=== PATIENT | male | born 1960 | race African-American/Black ===

== ENCOUNTER 2018-08-30 05:29 | Inpatient (IN) ==
[2018-08-30] MEDS ORDERED: COMPAZINE IV ONE (06:05)
[2018-08-30 06:56] LABS: BASO# 0.01 X1000 (0.0-0.2); BASO% 0.1 % (0.0-0.8); HEMATOCRIT 38.6 % (42.0-52.0); HEMOGLOBIN 13.1 g/dL (14.0-18.0); IMM GRAN# 0.03 X1000 (0.0-0.04); IMM GRAN% 0.3 % (0.0-0.5); LYMPH# 1.08 X1000 (1.2-3.4); LYMPH% 9.6 % (20.5-51.1); MCH 28.3 PG (27-31); MCHC 33.9 g/dL (33-37); MCV 83.4 FL (81-99); MONO# 0.45 X1000 (0.11-0.59); NEUT# 9.68 X1000 (1.4-6.5); PLT 177 X1000 (130-400); RBC 4.63 XMIL (4.7-6.1); RDW 14.2 % (11.5-14.5); WBC 11.25 X1000 (4.8-10.8)
[2018-08-30 07:07] LABS: ALBUMIN 4.2 g/dL (3.5-5.0); CALCIUM 7.6 mg/dL (8.8-10.2); CREATININE 1.9 mg/dL (0.7-1.2); POTASSIUM 3.1 mmol/L (3.5-5.1); TOTAL BILIRUBIN 1.6 mg/dL (0.20-1.00); TOTAL PROTEIN 7.9 g/dL (6.3-8.3)
--- NOTE | 2018-08-30 07:08 | PROVIDER DOCUMENTATION ---
HPI-Abdominal Pain/GI Problem - General Chief Complaint: Abdominal Pain Stated Complaint: ABD PAIN/VOMITING Time Seen by Provider: 08/30/18 05:52 Source: patient Allergies/Adverse Reactions: Patient Allergies Allergy/AdvReac Type Severity Reaction Status Date / Time promethazine HCl * Allergy Unknown agitation Verified 08/30/18 05:44 [From Phenergan] Home Medications: Home Medication List Medication Instructions Recorded Confirmed Last Taken Type ATORVAstatin [Lipitor] 80 mg PO DAILY 06/02/18 06/02/18 Unknown History Amlodipine [Norvasc] 5 mg PO DAILY 06/02/18 06/02/18 Unknown History Carvedilol 25 mg PO BID 06/02/18 06/02/18 Unknown History Chlorthalidone 50 mg PO DAILY 06/02/18 06/02/18 Unknown History Hyoscyamine Sulfate 0.125 mg PO Q6H PRN PRN #30 tab 06/02/18 Unknown Rx Losartan Potassium [Cozaar] 100 mg PO DAILY 06/02/18 06/02/18 Unknown History Omeprazole 40 mg PO DAILY 06/02/18 06/02/18 Unknown History Potassium Chloride E.r. [Klor-Con] 20 meq PO BID 06/02/18 06/02/18 Unknown History Ondansetron HCl [Zofran] 4 mg PO Q4H PRN PRN #20 tab 08/29/18 Unknown Rx - History of Present Illness-ABD Nature of Presenting Problems: has been vomiting occ diarrhea no bleeding had 1 month ago hernia repair and gb says using 70/30 40 bid Abdominal Pain Onset Location: reports: generalized abdomen Pain Radiation: reports: no radiation Quality of Pain: reports: aching, pressure Severity in ED: reports: mild Onset/Duration: reports: this evening Timing: reports: still present Activities at Onset: reports: none Exposure to sick contacts?: No Associated Symptoms: reports: diarrhea, fever/chills, malaise, nausea, vomiting , weakness Last BM: 24 hours ago Dark Stools Present?: reports: none noticed Rectal Bleeding: reports: none Rectal Pain: reports: none Bruising or Bleeding Gums?: No Similar Symptoms Previously?: No Recently seen or treated by another doctor?: No Review of Systems - Adult - REVIEW OF SYSTEMS - ADULT Constitutional: reports: no symptoms reported Eyes: reports: no symptoms reported Ears, Nose, Mouth & Throat: reports: no symptoms reported Cardiovascular: reports: no symptoms reported Respiratory: reports: cough, dyspnea on exertion Gastrointestinal: reports: see HPI Musculoskeletal: reports: no symptoms reported Integumentary: reports: no symptoms reported Neurological: reports: no symptoms reported Psychiatric: reports: no symptoms reported Endocrine: reports: increased thirst, polyuria Hematologic/Lymphatic: reports: no symptoms reported Past History - Adult - PAST MEDICAL HISTORY-ADULT Review of Records: reports: Nursing Assessment Review, Medications Reviewed, Social history reviewed & non-contributory. Major Childhood Illnesses: reports: denies history Cardiovascular: reports: HTN Respiratory: reports: denies history Gastrointestinal: reports: denies history Obstetrical/Gynecological: reports: denies history Genitourinary: reports: denies history Musculoskeletal: reports: denies history Neurological: reports: denies history Psychiatric: reports: denies history Endocrine/Immune: reports: denies history Other Conditions: reports: denies history - PRIOR SURGERIES/PROCEDURES Surgical/Procedure History: reports: recent surgery, cholecystectomy, hernia repair, joint replacement - IMMUNIZATION STATUS Childhood Immunizations: See Nurse Assessment Flu Vaccine: See Nurse Assessment - FAMILY HISTORY Family History: HTN Physical Exam-General - PHYSICAL EXAM-ADULT Initial Vital Signs Reviewed: Yes - CONSTITUTIONAL General Appearance: mild distress - EYES Eyes: PERRL/EOMI, pink conjunctivae - HEAD, EARS, NOSE, MOUTH & THROAT HENMT: normocephalic/atraumatic, moist mucous membranes, normal ENT inspection - NECK Neck: non-tender, full range of motion, supple - RESPIRATORY Respiratory: chest non-tender, lungs clear, normal breath sounds - CARDIOVASCULAR Cardiovascular: normal peripheral pulses, regular rate, rhythm - GASTROINTESTINAL (ABDOMEN) Abdominal Exam: soft - LYMPHATIC Lymphatic: no adenopathy - MUSCULOSKELETAL Back Exam: normal inspection, no CVA tenderness Extremity: normal range of motion, non-tender, normal gait - SKIN Integumentary: normal color, normal turgor - NEUROLOGIC Neurologic: grossly normal - PSYCHIATRIC Psych/Mental Status: normal mood/affect Progress - PLAN OF CARE/RESULTS Progress/Plan/Lab Results: Vital Signs - 8 hr 08/30/18 05:41 Temperature 97.8 F Pulse Rate 80 Respiratory Rate 20 Blood Pressure 158/98 O2 Sat by Pulse Oximetry 96 Laboratory Results - last 24 hr 08/30/18 06:35 WBC 11.25 H RBC 4.63 L Hgb 13.1 L Hct 38.6 L MCV 83.4 MCH 28.3 MCHC 33.9 RDW Std Deviation 14.2 Plt Count 177 MPV 13.0 H Immature Gran % (Auto) 0.3 Neut % (Auto) 86.0 H Lymph % (Auto) 9.6 L Lucas % (Auto) 4.0 Eos % (Auto) 0.0 Baso % (Auto) 0.1 Immature Gran # (Auto) 0.03 Neut # (Auto) 9.68 H Lymph # (Auto) 1.08 L Lucas # (Auto) 0.45 Eos # (Auto) 0.00 Baso # (Auto) 0.01 Orders Category Date Time Status AMYLASE [CHEM] Stat Lab 08/30/18 06:35 Received CBC WITH ELECTRONIC DIFF [HEME] Stat Lab 08/30/18 06:35 Completed COMPREHENSIVE METABOLIC PANEL [CHEM] Stat Lab 08/30/18 06:35 Received LIPASE [CHEM] Stat Lab 08/30/18 06:48 Ordered Prochlorperazine [Compazine] Med 08/30/18 06:05 Discontinued 10 mg IV NOW ONE examined pt, having pain, wrote for dilaudid, pain is periumbilical, active bowel sounds central abdomen, mild tenderness to palpation, still nauseated but not as bad after IV meds, all started on Monday with v/d/AP, would wake up groaning with pain, no fever, no diarrhea since yesterday, vomiting has decreased since but still has it, pain is the issue. Spoke with Neelam who is on for the group, he knows Edna would like to talk to me and will help locate him. Spoke w Dr Bishop, rec admit to hospitalist ff does not feel better. Spoke w Edna, reviewed results today and yesterday, HPI and current condition, giving pain med, will see if he improves with pain med, may admit for obs to hospitalist and if so he recs HIDA as a possible study to r/o stone within duct system post bob [id number] Pt still not feeling better after meds Spoke with Dr Pérez HPI PSH condition, results today and yesterday, Dr Bishop involved, agreed to admit Result Diagrams: 08/30/18 06:35 08/30/18 06:35 Departure - Departure Date of Disposition Decision: 08/30/18 Time of Disposition Decision: 09:51 DIAGNOSIS: Abdominal pain, Vomiting Disposition: ADMITTED INPATIENT 09 Certified Medical Emergency: Emergent Condition: Good Referrals and Follow-Ups: Lucia Bourgeois MD [Primary Care Provider] - - Critical Care Note This patient required my direct & personal management of CC.: No Attestation - Physician/ NATALIE Attestation The physician spent face to face time with patient:: Yes Advanced Practice Provider documentation review:: Supervising physician onsite and consulted in the evaluation and care of this patient. The physician did have a face to face encounter with the patient.
[2018-08-30] MEDS ORDERED: NS 1,000 ML IV ONE (08:02)
[2018-08-30] MEDS ORDERED: DILAUDID IV ONE (08:02)
[2018-08-30] MEDS ORDERED: ZOFRAN IV PRN (11:14)
[2018-08-30] MEDS ORDERED: TYLENOL PO PRN (11:14)
[2018-08-30] MEDS ORDERED: NS 1,000 ML IV SCH (11:30)
--- NOTE | 2018-08-30 11:42 | HISTORY AND PHYSICAL ---
PRIMARY CARE PHYSICIAN: Lucia Bourgeois MD GENERAL SURGERY: Saul Bishop MD CHIEF COMPLAINT/HISTORY OF PRESENT ILLNESS: Periumbilical abdominal pain and right upper quadrant abdominal pain, nausea and vomiting that began Monday and progressively has worsened. He had a hernia repair and a cholecystectomy on 07/13/2018. He did well after the procedure, went home, was doing well, and now when he drinks liquids he is able to hold those down, but if he tries to eat any food, he begins having nausea, abdominal pain, and has had some occasional diarrhea. He was seen in the emergency room yesterday and had an abdomen and pelvic CT done that just showed postsurgical changes, a questionable left lower lobe pneumonia, but no evidence of acute intraabdominal or pelvic disease. It was noted that his white blood cell count yesterday was 6.7; today it is 11.25. His creatinine was 1.7 yesterday; today it is 1.9. Total bilirubin yesterday in the emergency room was 1.38; today it is 1.6. His abdomen exam is soft. He has some tenderness to palpation in the right upper quadrant, but no guarding noted. Bowel sounds were present. So, he is being admitted for further evaluation and treatment. PAST MEDICAL HISTORY: Hypertension. PAST SURGICAL HISTORY: Cholecystectomy and hernia repair 1 month ago on 07/13/2018. FAMILY HISTORY: Hypertension. SOCIAL HISTORY: He currently lives with his . Denies any tobacco, alcohol, or illicit drug use. ALLERGIES: To promethazine. HOME MEDICATIONS: His home medications will all be held at this time, as he is n.p.o., but we do need to obtain a current list, and then they will be restarted after reviewed as appropriate. I will place an order for nursing to update and confirm home medications. LABORATORY DATA: Showed a white blood cell count of 11.25, hemoglobin 13.1, hematocrit 38.6, platelets 177,000. Sodium 143, potassium 3.1, chloride 97, CO2 of 26, BUN of 24, creatinine 1.9, glucose 169, total bilirubin of 1.6. AST and ALT are normal at 29 and 16. Amylase is normal at 92, lipase 18. REVIEW OF SYSTEMS: He denied any fever, chills, blurred vision, dizziness, chest pain, coughing, shortness of breath. He was positive for right upper quadrant and periumbilical abdominal pain, nausea, some occasional diarrhea. No burning or hurting with urination. PHYSICAL EXAMINATION: VITAL SIGNS: On arrival, he had a temperature of 97.8 degrees, pulse 80, respirations 20, blood pressure 158/98, saturating 96% on room air. GENERAL: This is a 58-year-old male who is sitting up in the bed, answers questions appropriately. HEENT: Normocephalic, atraumatic. Normal ENT inspection. Oropharynx and nares are clear. Eyes: Pupils are equal, round, reactive to light and accommodation. Extraocular movements are intact. NECK: Normal inspection. Normal range of motion. LUNGS: Clear to auscultation bilaterally with equal lung expansion and chest wall movement. ABDOMEN: Soft. There is some tenderness to palpation to the periumbilical and right upper quadrant, but no guarding noted. Bowel sounds are present x4 quadrants. MUSCULOSKELETAL: He has 5/5 strength x4 extremities. NEUROLOGICAL: The cranial nerves 2 through 12 appear grossly intact. ASSESSMENT: 1. Right upper quadrant abdominal pain. 2. Nausea. 3. A questionable left lower lobe pneumonia. 4. Hypokalemia. 5. An acute on chronic kidney disease. PLAN: He is being admitted to the medical unit at [facility], placed on telemetry. We will update and confirm home medications, but he is n.p.o. at this time. We will consult surgery. We are going to obtain a HIDA scan with an ejection fraction. Place him on Zosyn 3.375 grams IV every [address] him on normal saline at 125 mL an hour. We will give him Zofran 4 mg IV every 4 hours p.r.n. Depending on the results of his HIDA scan, we will review and see if he will need any further intervention for any stone, for an ERCP after reviewing the HIDA scan. Further orders after seen by attending. Dictated by KERRIE Fuentes for Ja Rausch MD cc: KERRIE Fuentes MD Bernice Swain, MD Matthew L. Figh, MD
[2018-08-30] MEDS: ZOSYN 3.375 GM in NS 50 ML IV SCH ×3 (12:45→23:10)
[2018-08-30] MEDS: NS + KCL 40 MEQ 1,000 ML IV SCH (14:51)
--- NOTE | 2018-08-30 16:56 | Diag Imaging Result Doc PS360 ---
CT HEAD W/O CONTRAST - 08/30/2018 INDICATION: seizure COMPARISON: None FINDINGS: The ventricles and sulci are normal in size and contour. No intracranial mass or hemorrhage. The skull is intact. There is a mucosal retention cyst in the left maxillary sinus. There is also moderate fluid in the right mastoids suggesting mastoiditis. IMPRESSION: Possible right mastoiditis. No acute intracranial abnormality. This exam was performed using automated exposure control, adjustment of mA or kV according to patient size, and/or use of iterative reconstruction technique Electronically signed by Óscar Benitez 08/30/2018 4:54 PM
[2018-08-30] MEDS ORDERED: CALCIUM GLUCONATE 1 GM in NS 50 ML IV ONE (18:30)
[2018-08-30] MEDS: LIPITOR PO SCH (23:11)
[2018-08-31 00:35] LABS: BILIRUBIN URINE NEGATIVE (NEGATIVE); BLOOD URINE 4+ (NEGATIVE); CLARITY CLEAR (CLEAR); COLOR YELLOW; GLUCOSE URINE NEGATIVE (NEGATIVE); KETONE URINE NEGATIVE (NEGATIVE); LEUKOCYTES URINE NEGATIVE (NEGATIVE); NITRITE URINE NEGATIVE (NEGATIVE); PROTEIN URINE 2+(100 mg/dL) mg/dL (NEGATIVE); UROBILINOGEN URINE NORMAL
[2018-08-31 00:37] LABS: UR AMPHETAMINES QUAL NONE DETECTED (NONE DETECT); UR BARBITUATES QUAL NONE DETECTED (NONE DETECT); UR BENZODIAZEPIN QUAL NONE DETECTED (NONE DETECT); UR CANNABINOIDS QUAL NONE DETECTED (NONE DETECT); UR COCAINE QUAL NONE DETECTED (NONE DETECT); UR METHADONE QUAL NONE DETECTED (NONE DETECT); UR METHAMPHETAMINE QUAL NONE DETECTED (NONE DETECT); UR OPIATES QUAL PRESUMPTIVE POSITIVE (NONE DETECT); UR OXYCODONE QUAL NONE DETECTED (NONE DETECT); UR PCP QUAL NONE DETECTED (NONE DETECT); UR PROPOXYPHENE QUAL NONE DETECTED (NONE DETECT); UR TCA QUAL NONE DETECTED (NONE DETECT)
[2018-08-31 00:38] LABS: URINE SOURCE CLEAN CATCH
[2018-08-31 00:39] LABS: URINE BACTERIA 2+ /HFP; URINE EPITHELIAL CELLS <10 /HPF (<10); URINE WBC <10 /HPF (<10)
[2018-08-31] MEDS ORDERED: CALCIUM GLUCONATE 1 GM in NS 50 ML IV ONE (01:00)
--- NOTE | 2018-08-31 02:00 | HISTORY AND PHYSICAL ---
ADDENDUM: The patient was seen and examined by me face to face. All the laboratory, vital signs, and images were reviewed. The patient presented to the emergency department yesterday, and was discharged home again because images showed just postsurgical changes, but questionable left lower lobe pneumonia, with no evidence of acute intra-abdominal or pelvic disease. His white blood cells yesterday was 6.7, and today it is 11.2. Creatinine was 1.7, and today is 1.9. Bilirubin increased a little bit also. He has been complaining of periumbilical pain and right upper quadrant pain, but also he started having some nausea and vomiting that started on Monday, and apparently has been getting worse. He is hypokalemic also, and has some hypocalcemia as well. Calcium level is 7.6, and albumin is 4.2. Actually, his albumin yesterday was 4.6, and his calcium level was 7.9, so I will not only replace his potassium, but I will also replace his calcium. This patient was transferred to the floor, and then he was having some kind of shakiness, probably seizure. He was unresponsive, and it was really hard to wake him up. He was confused for a little bit, and then he recovered his memory completely, but he has been having some fine tremors everywhere. I have placed an order for an EEG, and I will wait for Neurology's recommendations to see if this patient needs to have some kind of special images. His head CT without contrast showed a possible right mastoiditis, but no acute intracranial abnormality. He will be evaluated by Neurology Department. Also, this patient has been evaluated by the Surgical Department, who has recommended to do a HIDA scan. This will be done in the morning, and will follow. In the meantime, I have placed this patient on a liquid diet. I agree with the rest of the assessment and plan of the nurse practitioner. cc: Ja Rausch MD
[2018-08-31] MEDS: NS + KCL 40 MEQ 1,000 ML IV SCH ×2 (04:18→12:54)
[2018-08-31] MEDS: ZOSYN 3.375 GM in NS 50 ML IV SCH ×2 (05:22→12:54)
--- NOTE | 2018-08-31 05:47 | GENERAL SURGERY PROGRESS NOTE ---
DATE: 08/30/2018 The patient is well-known to me. I did a hernia repair on him, and a cholecystectomy, almost 2 months ago. He came to my office earlier this week with abdominal pain. We had him scheduled for an elective outpatient CT scan, but he came to the emergency department instead. CT scan was done in the emergency department. It did not show any acute pathology, but he has had persistent abdominal pain and inability to tolerate p.o. He came back into the emergency department, was admitted, and apparently had some questionable seizure-like activity. They got a CT scan of his head, which is negative. At this time, I do not see any obvious acute surgical issue, but agree with admitting him and watching him. I have discussed this case with Dr. Pérez with the hospitalist service. He is admitting him. They are getting a further workup on his possible seizure. We will also get a HIDA scan for evaluation of any kind of biliary issue. I will continue to follow with you. cc: MD Ja Bolton MD
--- NOTE | 2018-08-31 06:07 | CONSULTATION ---
DATE OF CONSULTATION: 08/30/2018 REASON FOR CONSULTATION: Mr. Brice is 58 years old and he had some behavior earlier raising question of seizure. History from the patient is that he is miserable with stomachache, nausea, and diarrhea, and that he has had some periods of times with difficulty paying attention. He does not remember thinking he was about to pass out and he does not recall a sense of waking up after the episode. He denies headache. History from his attentive family is that he began complaining of dizziness with room spinning features early this morning. At times, the family would notice his eyes appeared to be rolled up and he was shaking all over, but during these times, he could respond verbally and carry on appropriate conversation. Family did not notice the shaking to involve one side of his body more than the other. Periods of shaking were variable, sometimes as long as 5-10 minutes. After an episode of shaking, family reports he would be speaking appropriately within just a few seconds. There was no associated incontinence. There was no tongue biting or lip biting. Family has recognized several of these episodes through the day, some before he got to the emergency room, several during the morning in the emergency room and at least one more dramatic episode after he was transferred to the hospital bed in this room. He has not had a dramatic spell in the last 4 hours or so. There is no history of previous head injury, previous seizure, previous stroke, other neurologic event. He does not use ethanol. He denies illicit drug use. He has taken "pain medicine" for a short course after knee surgery several years ago without problems tolerating that. He has had hydrocodone in recent weeks since surgery for umbilical hernia repair and cholecystectomy. Family reports he does not take the pain medicine every day and they have never noticed pain medicine to be associated with an altered mental state. He had hydromorphone 1 mg early this morning. LABORATORY AND TOXICOLOGY: His toxicology shows drug screen positive for opiates only. Other lab showed mild hypokalemia, which has been corrected, moderately elevated blood sugar, creatinine up to 1.9, but BUN still in the 20s. He has been afebrile. WBC count was [address]. Noncontrast CT of the head this afternoon shows nothing remarkable. EEG is about to begin. PHYSICAL EXAMINATION: On exam, Mr. Brice is awake, alert, attentive. He answered questions appropriately. He was oriented to all parameters. Speech is not significantly dysarthric. Language function is intact on bedside testing. Remote memory is good. Head and neck are unremarkable. Visual osborn are full tested by confrontational finger counting. Extraocular movements are full. There is some lateral gaze evoked horizontal nystagmus present bilaterally, a little bit more dramatic when he looks to the right than to the left. He does not report dizziness or vertigo associated with head turning or eye movement. Facial motility is symmetric. Facial sensation is intact. Gag is intact. Tongue is midline. Hearing seems good bilaterally. Shoulder shrug is good bilaterally. Strength is normal in the arms and legs. He did well on [id number] testing bilaterally. I did not test his gait. Sensation is intact on gross testing over the limbs. During my time at the bedside, he had a 20-30 second episode of eye fluttering and moaning with irregular, arrhythmic shaking in the limbs. Family reports that is identical to the other episodes, except shorter duration. During that spell, he answered my questions appropriately. IMPRESSION AND PLAN: No definite neurologic findings. He does appear to be miserable. The episodes as reported do not sound like seizure. He may have had vertigo associated with labyrinthopathy or other explanation. If EEG is not remarkable, I do not think we will need to do anything urgently from a neurologic standpoint. If he has definite altered awareness or altered consciousness, we can consider brain MRI and prolonged EEG recording. If he becomes febrile, LP might be needed. We might consider treating him with meclizine if vertigo persists. Thanks for asking Neurology to see Mr. Brice. cc: MD Ja Alvares III, MD MTDD
[2018-08-31 07:55] LABS: BASO# 0.04 X1000 (0.0-0.2); BASO% 0.4 % (0.0-0.8); EOS# 0.07 X1000 (0.0-0.7); EOS% 0.6 % (0.0-10.0); HEMATOCRIT 36.2 % (42.0-52.0); HEMOGLOBIN 11.9 g/dL (14.0-18.0); IMM GRAN# 0.03 X1000 (0.0-0.04); IMM GRAN% 0.3 % (0.0-0.5); LYMPH# 1.85 X1000 (1.2-3.4); LYMPH% 17.1 % (20.5-51.1); MCH 27.9 PG (27-31); MCHC 32.9 g/dL (33-37); MCV 84.8 FL (81-99); MONO# 0.81 X1000 (0.11-0.59); MONO% 7.5 % (1.7-9.3); MPV 12.6 FL (7.4-10.4); NEUT# 8.03 X1000 (1.4-6.5); NEUT% 74.1 % (42.2-75.2); PLT 129 X1000 (130-400); RBC 4.27 XMIL (4.7-6.1); WBC 10.83 X1000 (4.8-10.8)
[2018-08-31 08:35] LABS: ALBUMIN 3.5 g/dL (3.5-5.0); CREATININE 1.7 mg/dL (0.7-1.2); POTASSIUM 2.9 mmol/L (3.5-5.1); TOTAL BILIRUBIN 1.8 mg/dL (0.20-1.00); TOTAL PROTEIN 6.1 g/dL (6.3-8.3)
[2018-08-31 08:36] LABS: CALCIUM 6.8 mg/dL (8.8-10.2)
[2018-08-31] MEDS ORDERED: KLOR-CON PO ONE ×2 (08:48→22:44)
--- NOTE | 2018-08-31 09:25 | GENERAL SURGERY PROGRESS NOTE ---
DATE: 08/31/2018 SUBJECTIVE: The patient seems to be doing okay. No major issues. OBJECTIVE: Vital Signs: Patient is currently afebrile. His vital signs are stable. General: No acute distress. Cardiovascular: Regular rate and rhythm. Lungs clear. Abdomen soft, less tender. Neurologic intact. LABORATORY: None this morning as of yet. ASSESSMENT AND PLAN: A 58-year-old gentleman, essentially 2 months out from ventral hernia repair and cholecystectomy with abdominal pain and possible seizures. 1. Seizures. At this time, Neurology has been consulted. CT scan was essentially normal. 2. Abdominal pain. At this time, HIDA scan is pending, but I do not think there is any surgical intervention needed at this time. My partner, Dr. Yadav, will cover during the weekend. cc: MD Ja Bolton MD
[2018-08-31] MEDS ORDERED: CALCIUM GLUCONATE 4.65 MEQ in NS 50 ML IV ONE (09:30)
--- NOTE | 2018-08-31 09:46 | Diag Imaging Result Doc PS360 ---
EXAM: HIDA SCAN W/O EJECT. FRACTION - 08/31/2018 HISTORY: RUQ abd pain, s/pCholecystectomy TECHNIQUE: HIDA scan without ejection fraction. Exam performed using 5.2 mCi technetium 99m Choletec administered intravenously. COMPARISON: None. FINDINGS: The patient is status post cholecystectomy. There is prompt tracer uptake and excretion by the liver, with prompt appearance of tracer in small bowel. There is no extravasation of tracer identified to a time of 27 minutes following administration. According to the technologist, the patient was unable to tolerate additional imaging, and the study was halted at that time. IMPRESSION: Status post cholecystectomy. Unremarkable exam otherwise. No indication of bile leak. Electronically signed by Emmett Hollis 08/31/2018 9:44 AM
[2018-08-31] MEDS: NORVASC PO SCH (09:48)
[2018-08-31] MEDS: FISH OIL CONCENTRATE PO SCH (09:48)
--- NOTE | 2018-08-31 14:31 | PROGRESS NOTE ---
DATE: 08/31/2018 Mr. Brice has improved in the last 24 hours. This morning, he reports no headache, some improvement in his nausea, no significant dizziness. recorded cell phone video of his restless sleeping yesterday. He slept sometimes with eyes incompletely closed and there was some eye movement during apparent sleep. He was easily waked and answered questions. At this time, he is awake, alert, attentive, and appropriate. Speech is not dysarthric. Language function is intact on brief bedside testing. Memory seems good. Head and neck are unremarkable. There is no meningismus. He has full lateral eye movements. There is no significant nystagmus now. Visual osborn are full tested grossly by confrontational finger counting. Limb tone and power are symmetric. I did not test his gait. Workup to this point has been unremarkable, including earlier neurology exam, CT scan of the head, EEG. I do not have any urgent suggestion. If dizziness becomes prominent, we can try meclizine. If he has periods of altered awareness, altered consciousness, headache, or neurologic deficits, we might consider further brain imaging and repeat EEG. He is afebrile now. I do not think we need lumbar puncture. My impression is that he had multifactorial syndrome with dizziness, some features of vertigo, possible reaction to medication, combination of factors. I do not think we need to do anything further from the neurologic standpoint now. Thanks for asking Neurology to see Mr. Brice. cc: MD Ja Alvares III, MD
[2018-08-31 14:51] LABS: ALBUMIN 3.5 g/dL (3.5-5.0); CALCIUM 7.1 mg/dL (8.8-10.2); CREATININE 1.9 mg/dL (0.7-1.2); POTASSIUM 3.7 mmol/L (3.5-5.1); TOTAL BILIRUBIN 1.7 mg/dL (0.20-1.00); TOTAL PROTEIN 6.5 g/dL (6.3-8.3)
[2018-08-31 14:56] LABS: MAGNESIUM 0.3 mg/dL (1.5-2.7)
[2018-08-31] MEDS ORDERED: MAGNESIUM SULFATE 2 GM/S.W.I. 2 GM/50 ML IVPB IV ONE ×2 (14:58→22:40)
--- NOTE | 2018-08-31 17:53 | PROGRESS NOTE ---
DATE: 08/31/2018 SUBJECTIVE: This patient seems to be doing better today. He is tolerating p.o. He is not complaining of abdominal pain at this moment. Yesterday, he had an episode of seizure-like activity in the afternoon, and as per the , also he had some kind of problems during the night. He has been having hypokalemia/hypocalcemia, unexplained. I checked his magnesium level and it was extremely low, and that can explain actually the hypokalemia/hypocalcemia and also the jerkiness. I will replace the magnesium, and I will monitor. He has been losing his magnesium either through his GI tract or through his kidneys. I will ask for a magnesium in 24 hours to monitor to find out where is this problem coming from. He had just 1 episode of watery bowel movement today, only one, so I am not quite sure if this is coming from the bowel or the kidney. PHYSICAL EXAMINATION: Vital signs: Temperature 98 degrees, pulse 68, respiratory rate 20, blood pressure 162/80, oxygen saturation on 3 L of nasal cannula. HEENT: Head normocephalic, no trauma. PERRLA. Neck: Supple. No JVD. No masses. Central trachea. Chest: Clear to auscultation. No wheezing. No rales. Abdomen: Soft, nontender, nondistended. No hepatosplenomegaly. A little decreased bowel sounds. Extremities: No edema. No clubbing. No cyanosis. Neurological: The patient is alert and oriented x3. No focal deficits. LABORATORY: WBC 10.8, hemoglobin 11.9, hematocrit 36.2, platelets 129,000. Sodium 143, potassium 3.7, chloride 103, bicarbonate 27, BUN 23, creatinine 1.9, glucose 133, calcium 7.1. Magnesium 0.3. ASSESSMENT AND PLAN: 1. Initially admitted due to right upper quadrant abdominal discomfort. The abdomen was a little bit distended and with decreased bowel sounds. CT scan has been performed and also HIDA scan, and we do not see any acute abnormality. Surgery Department has been on board. 2. Questionable left lower lobe pneumonia. This patient is not coughing or having shortness of breath. He has a mild leukocytosis at 10.8, no chest pain, so I will monitor for now. 3. This patient had a seizure activity yesterday in the afternoon coma. Neurology Department evaluated this patient. Today, I asked for a magnesium level which was extremely low. That can cause electrolyte imbalance and also can cause mental status changes, including seizures. I will replace it, and I will monitor closely. Also I have requested a 24-hour urine magnesium level to find out if this problem is coming from the GI tract or the kidney. Probably, he will need to take magnesium upon discharge. 4. Hypocalcemia and hypokalemia, likely secondary to low magnesium level. This is being replaced. Will monitor. 5. Otidh-el-yvqtyhm kidney disease. I think this is his baseline. His creatinine has been mostly between 1.6 and 1.9. Today, it is 1.9. We will continue to monitor this closely. cc: Ja Rausch MD
[2018-08-31] MEDS: LIPITOR PO SCH (20:40)
[2018-08-31 22:06] LABS: CALCIUM 7.1 mg/dL (8.8-10.2); CREATININE 1.9 mg/dL (0.7-1.2); POTASSIUM 2.9 mmol/L (3.5-5.1)
[2018-08-31 22:14] LABS: MAGNESIUM 0.7 mg/dL (1.5-2.7)
[2018-09-01 08:09] LABS: BASO# 0.04 X1000 (0.0-0.2); BASO% 0.5 % (0.0-0.8); EOS# 0.32 X1000 (0.0-0.7); EOS% 4.1 % (0.0-10.0); HEMATOCRIT 35.8 % (42.0-52.0); HEMOGLOBIN 11.5 g/dL (14.0-18.0); IMM GRAN# 0.02 X1000 (0.0-0.04); IMM GRAN% 0.3 % (0.0-0.5); LYMPH# 1.72 X1000 (1.2-3.4); LYMPH% 22.3 % (20.5-51.1); MCH 27.4 PG (27-31); MCHC 32.1 g/dL (33-37); MCV 85.2 FL (81-99); MONO# 0.58 X1000 (0.11-0.59); MONO% 7.5 % (1.7-9.3); MPV 12.3 FL (7.4-10.4); NEUT# 5.05 X1000 (1.4-6.5); NEUT% 65.3 % (42.2-75.2); PLT 133 X1000 (130-400); RDW 13.8 % (11.5-14.5); WBC 7.73 X1000 (4.8-10.8)
[2018-09-01 09:01] LABS: CALCIUM 7.2 mg/dL (8.8-10.2); CREATININE 1.5 mg/dL (0.7-1.2)
[2018-09-01] MEDS: NORVASC PO SCH ×2 (09:47→09:49)
[2018-09-01] MEDS: FISH OIL CONCENTRATE PO SCH (09:47)
[2018-09-01] MEDS ORDERED: KLOR-CON PO ONE (09:54)
[2018-09-01] MEDS ORDERED: MAGNESIUM SULFATE 2 GM/S.W.I. 2 GM/50 ML IVPB IV ONE (09:54)
[2018-09-01] MEDS ORDERED: CATAPRES-TTS-2 TD SCH (10:15)
--- NOTE | 2018-09-01 13:24 | PROGRESS NOTE ---
DATE: 09/01/2018 SUBJECTIVE: This patient is doing much better today. He has not had any more episodes of seizures or tremors. He is completely alert and oriented x3. His magnesium level looks better, but still really low. It was around 1 today, but better compared with yesterday; yesterday was 0.3. Potassium level is still low and I will replace it as well. I have requested a BMP and magnesium every 8 hours. OBJECTIVE: Vital Signs: Temperature 97.5 degrees, pulse 47, respiratory rate 18, blood pressure 158/57, oxygen saturation 100% on 3 L of nasal cannula. HEENT: Head normocephalic. No trauma. PERRLA. Neck: Supple. No JVD. No masses. Central trachea. Chest: Clear to auscultation. No wheezing. No rales. Abdomen: Soft, nontender, nondistended. No hepatosplenomegaly. A little decrease of the bowel sounds. Extremities: No edema. No clubbing. No cyanosis. Neurological examination: The patient is alert and oriented x3. No focal deficits. LABORATORY: WBC 7.7, hemoglobin 11.5, hematocrit 35.8, platelets 133. Sodium 141, potassium 3, chloride 102, bicarbonate 27. BUN 16, creatinine 1.5, glucose 112, calcium 7.2, magnesium 1. ASSESSMENT AND PLAN: 1. Initially admitted due to right upper quadrant abdominal discomfort. His abdominal pain is much better. CT scan has been performed and also HIDA scan, and we did not see any acute abnormality. Surgery Department has been on board. We will continue following his recommendations. 2. This patient had a seizure activity a couple days ago in the afternoon. Neurology Department evaluated this patient. We found out that the magnesium level was extremely low and have been replacing it. That could be the cause of his mental status changes including seizure. We will continue to monitor closely. I have requested a 24 urine/magnesium level to find out if the problem is coming from the GI tract or the kidney. Probably he will need to take magnesium upon discharge. 3. Hypomagnesemia, severe. Continue to replace. 4. Hypocalcemia, hypokalemia, likely secondary to low magnesium level that has been replaced. Will monitor. It is still a little bit low. 5. Acute on chronic kidney disease. His BUN is normal and creatinine is decreased to 1.5. For now, we will continue with the same management. 6. Nutritional status. I have advanced the diet to a healthy diet. 7. This patient is doing much better. I will continue replacing his electrolytes. They there still low. I will finish collecting the magnesium level in the urine. Hopefully, this patient can be discharged in the next 24 hours if everything has been corrected. cc: Ja Rausch MD
--- NOTE | 2018-09-01 13:53 | PROGRESS NOTE ---
DATE: 09/01/2018 SUBJECTIVE: Mr. Brice is a 58-year-old overweight black male who Dr. Bishop removed his gallbladder laparoscopically about 2 months ago. He has also had robotic prostatectomy for prostate cancer. He has been hospitalized because of abdominal discomfort. He has had a HIDA scan performed which showed no evidence of bile leak and there was a prompt appearance of the tracer into the small bowel. It was felt to be a normal HIDA scan status post cholecystectomy. OBJECTIVE: This morning he appears to be comfortable. He says that he feels much better than when he was hospitalized initially. He has a protuberant abdomen but it does not appear to be tightly distended and he is on a heart healthy diet which he is tolerating. He is undergoing an evaluation for electrolyte abnormalities. All his trocar sites are healed. ASSESSMENT AND PLAN: There does not appear to be a postoperative complication from laparoscopic cholecystectomy. The HIDA scan this hospitalization appears to be normal suggesting no obstruction from a common bile duct stone or any intraoperative injury. His white blood cell count is now normal. Hematocrit is 35%. His liver function tests are essentially normal. His BUN is 16 and creatinine 1.5. cc: MD Ja Sewell MD
[2018-09-01 16:46] LABS: CALCIUM 8.1 mg/dL (8.8-10.2); CREATININE 1.5 mg/dL (0.7-1.2); MAGNESIUM 1.5 mg/dL (1.5-2.7); POTASSIUM 3.1 mmol/L (3.5-5.1)
[2018-09-01] MEDS: LIPITOR PO SCH (21:10)
[2018-09-01] MEDS: NORCO-7.5 PO PRN (22:46)
[2018-09-01 23:03] LABS: UR MAGNESIUM 0.7 mg/dL
[2018-09-01 23:04] LABS: UR MAGNESIUM TOTAL 17.2 mg/24 (1.2-29.2)
[2018-09-02 02:00] LABS: AGAP 12; BUN 13 mg/dL (8-22); CALCIUM 8.2 mg/dL (8.8-10.2); CHLORIDE 99 mmol/L (98-107); COSMO 281; CREATININE 1.4 mg/dL (0.7-1.2); ESTIMATED GFR > 60; GLUCOSE 118 mg/dL (70-104); MAGNESIUM 1.3 mg/dL (1.5-2.7); POTASSIUM 3.2 mmol/L (3.5-5.1); SODIUM 140 mmol/L (136-145); TCO2 29 mmol/L (25-35)
[2018-09-02] MEDS: NORCO-7.5 PO PRN (04:14)
[2018-09-02 07:51] LABS: HEMOGLOBIN A1C 6.2 % (4.8-6.0)
[2018-09-02 07:54] LABS: AGAP 13; BUN 11 mg/dL (8-22); CALCIUM 8.2 mg/dL (8.8-10.2); CHLORIDE 100 mmol/L (98-107); COSMO 280; CREATININE 1.4 mg/dL (0.7-1.2); ESTIMATED GFR > 60; GLUCOSE 125 mg/dL (70-104); MAGNESIUM 1.3 mg/dL (1.5-2.7); POTASSIUM 3.2 mmol/L (3.5-5.1); SODIUM 140 mmol/L (136-145); TCO2 27 mmol/L (25-35)
[2018-09-02] MEDS ORDERED: NORVASC PO SCH (09:00)
[2018-09-02] MEDS: FISH OIL CONCENTRATE PO SCH (10:04)
[2018-09-02] MEDS ORDERED: KLOR-CON PO ONE (10:42)
[2018-09-02] MEDS ORDERED: MAGNESIUM SULFATE 2 GM/S.W.I. 2 GM/50 ML IVPB IV ONE (10:42)
[2018-09-02] MEDS ORDERED: PRILOSEC PO SCH (11:00)
[2018-09-02] MEDS ORDERED: VITAMIN C PO SCH (11:00)
[2018-09-02] MEDS ORDERED: VITAMIN D PO SCH (11:00)
[2018-09-02] MEDS ORDERED: HYGROTON PO SCH (11:00)
[2018-09-02] MEDS ORDERED: COZAAR PO SCH (11:00)
[2018-09-02 12:18] VITALS: BP 186/84
--- NOTE | 2018-09-02 12:43 | DISCHARGE SUMMARY ---
ADMISSION DATE: 08/30/2018 DISCHARGE DATE: ADDENDUM: DISCHARGE DIAGNOSES: 1. Abdominal discomfort after gallbladder issues. 2. He did have some electrolyte issues; low potassium, low magnesium. 3. He had a questionable seizure but it was felt to be associated with low magnesium, which I think neurology did not recommend long-term antiseizure medications. On the day of discharge, his potassium is still a little low at 3.2 but is improved. His creatinine is down to 1.4 and his magnesium is 1.3. So, we will plan to discharge him today. Adjust his medications. I would consider stopping his chlorthalidone because that may be affecting his kidney function and his potassium and he may need some magnesium to go home with as well. He has some renal insufficiency so I am a little concerned about leaving him on long-term magnesium, but we will check his levels again. I am going to give him Slow-Mag probably every other day until Dr. Bourgeois can follow up on that. This is a [id number] encounter note with KERRIE Fuentes. cc: MD Ja Kwok MD Bernice Swain, MD
[2018-09-02] MEDS ORDERED: SLOW-MAG PO ONE (13:08)
[2018-09-02] MEDS ORDERED: COREG PO SCH (21:00)
--- NOTE | 2018-09-02 22:55 | DISCHARGE SUMMARY ---
ADMISSION DATE: 08/30/2018 DISCHARGE DATE: 09/02/2018 PRIMARY CARE PHYSICIAN: Dr. Lucia Bourgeois. ADMISSION DIAGNOSES: 1. Right upper quadrant abdominal pain. 2. Nausea. 3. Questionable left lower lobe pneumonia. 4. Hypokalemia. 5. Acute on chronic kidney disease. DISCHARGE DIAGNOSES: 1. Right upper quadrant abdominal pain, resolved. 2. Seizure activity that was felt to be mental status changes and not a true seizure. 3. Hypomagnesemia, resolved. 4. Acute on chronic kidney disease, improved. SUMMARY OF FINDINGS: This is a 58-year-old male who presented with periumbilical abdominal pain and right upper quadrant abdominal pain, nausea, vomiting that began Monday and progressively worsened. He had a hernia repair and a cholecystectomy on 07/13/2018. He did well with that, went home, and now states he is only able to drink liquids and hold those down, but if he tried to eat food, he began feeling nauseous and had abdominal pain and some occasional diarrhea. He was seen in the emergency room the day prior and had an abdomen and pelvic CT done. This showed postsurgical changes, a questionable left lower lobe pneumonia, but no evidence of acute intra- abdominal or pelvic disease. His creatinine had a bump in it from 1.7 the day prior to 1.9 on the day of admission. When he arrived to the floor, he had some seizure-like activity where he was difficult to arouse and his eyes rolled back in his head. We consulted Neurology who did not find any neurological findings. He felt that the episodes did not sound like a seizure but, instead, may have had some vertigo with an associated labyrinthopathy. Surgery saw him and did not feel that there was anything surgical outstanding with this patient and that he was most likely dehydrated. He is feeling much better, has been tolerating a healthy heart diet. His O2 saturation on room air was 98% to 99%. So it is felt now that he can safely be discharged home. DISCHARGE MEDICATIONS: Include amlodipine 5 mg p.o. daily, vitamin C 500 mg p.o. daily, atorvastatin 80 mg p.o. at bedtime, Coreg 25 mg p.o. b.i.d., chlorthalidone 50 mg p.o. daily, vitamin D3 1000 units p.o. daily, clonidine patch as directed TTS-2, vitamin B12 1500 mcg p.o. daily, ginseng 1 tablet p.o. daily, losartan 100 mg p.o. daily, fish oil 1000 mg p.o. daily, omeprazole 40 mg p.o. daily, potassium chloride 20 mEq p.o. daily, and a prescription for Slow-Mag 64 mg p.o. q.48 #10 with no refills. FOLLOWUP: He needs to follow up with his primary care physician in 1 to 2 weeks and call the office for an appointment. All discharge instructions have been reviewed with the patient, and he verbalized understanding. TIME SPENT: 35-minute discharge. Dictated by KERRIE Fuentes for Sameer Alcantara MD cc: KERRIE Fuentes MD Omar J. Sosa-Chirinos, MD Bernice Swain, MD
[2018-09-03] MEDS ORDERED: PATIENT'S OWN MED PO SCH (09:00)
[2018-09-03] MEDS ORDERED: KLOR-CON PO SCH (09:00)
[2018-09-03] MEDS ORDERED: VITAMIN B-12 PO SCH (09:00)
--- NOTE | 2018-09-03 11:13 | EEG REPORT ---
DATE: 08/30/2018 COMMENT: This is a digitally recorded EEG done portably on a patient with dizziness, nausea, question of transient altered awareness and seizure. FINDINGS: Portions of the record are obscured by head movement and muscle contraction, but, overall, interpretation is possible. There is legible EEG showing brief rums of low amplitude poorly sustained 9 Hz, posterior rhythm with uncertain reactivity to eye opening. There is polymorphic and rhythmic theta in the waking background. Drowsing occurred briefly. Stage 2 sleep was not recorded. Photic stimulation produced increased eye blink artifact, but did not alter the EEG. Hyperventilation was not done. No definite epileptiform discharge was identified. INTERPRETATION: Normal electroencephalogram. CORRELATION: The absence of epileptiform discharges on a single EEG does not exclude a clinical diagnosis of seizure, but there is nothing on this record to prove the presence of a seizure disorder, and there is not other evidence of encephalopathy. cc: MD Ja Alvares III, MD MTDD
== END 2018-09-02 13:43 | disposition home or self-care (01) | DRG 392 ==
LOC: P.ED 05:29 → P.MEDSURG 05:30 → SUATTDRO 05:30
PROVIDERS: ADMIT Internal Medicine; ATTEND Internal Medicine
CPT/HCPCS: 70450; 78226; 80048; 80053; 80101; 80104; 80301; 80305; 80307; 80324; 80345; 80346; 80353; 80358; 80361; 80365; 81001; 81050; 82150; 82948; 83036; 83690; 83735; 83992; 85025; 87040; 87088; 95816; 96361; 96374; 96375; 97162; 99285; A9270; A9537; G0431; G0434; G0477; G0479; G0480; J0610; J0780; J1170; J2405; J2543; J3475; J7030; XXXXX

== ENCOUNTER 2018-09-20 11:04 | Inpatient (IN) ==
--- NOTE | 2018-09-20 11:51 | PROVIDER DOCUMENTATION ---
HPI-General Adult - General Chief Complaint: B/P Problems Stated Complaint: BP PROBLEMS Time Seen by Provider: 09/20/18 11:50 Source: patient Allergies/Adverse Reactions: Patient Allergies Allergy/AdvReac Type Severity Reaction Status Date / Time promethazine HCl * Allergy Unknown agitation Verified 08/30/18 05:44 [From Phenergan] Home Medications: Home Medication List Medication Instructions Recorded Confirmed Last Taken Type Amlodipine [Norvasc] 5 mg PO DAILY 06/02/18 09/20/18 09/20/18 08:00 History Carvedilol 25 mg PO BID 06/02/18 09/20/18 09/20/18 08:00 History Losartan Potassium [Cozaar] 100 mg PO DAILY 06/02/18 09/20/18 09/20/18 08:00 History Omeprazole 40 mg PO DAILY 06/02/18 09/20/18 09/20/18 08:00 History Potassium Chloride E.r. [Klor-Con] 20 meq PO DAILY 06/02/18 09/20/18 09/20/18 08 :00 History Ascorbic Acid [Vitamin C] 500 mg PO DAILY 08/30/18 09/20/18 09/19/18 07:00 History Cholecalciferol (Vit D3) [Vitamin 1 tab PO DAILY 08/30/18 09/20/18 09/20/18 07: 00 History D3] Cyanocobalamin (Vitamin B-12) 1,500 mcg PO DAILY 08/30/18 09/20/18 09/19/18 07: 00 History [Vitamin B-12] [place]-3 Fatty Acids/Fish Oil [Fish 1 cap PO DAILY 08/30/18 09/20/18 09/19/18 08: 00 History Oil 1,000 mg Capsule] Clonidine 1 each TD DIRECTED 09/01/18 09/20/18 09/20/18 08:00 History Cholecalciferol (Vit D3) [Vitamin 1,000 unit PO DAILY 09/20/18 09/20/18 Unknown History D3] Cyanocobalamin (Vitamin B-12) 1,000 mcg PO DIRECTED 09/20/18 09/20/18 08:00 History [Vitamin B-12] Magnesium Cl D.r. [Slow-Mag] 71.5 mg PO DAILY 09/20/18 09/20/18 09/20/18 08:00 History Meclizine HCl 12.5 mg PO DIRECTED 09/20/18 09/20/18 Unknown History - History of Present Illness -Gen Adult Nature of Presenting Problems: Patient is a 58 year old male complaining of elevated blood pressure with dizziness. Denies chest pain, sob, or headache. PCP just change BP medication yesterday. Review of Systems - Adult - REVIEW OF SYSTEMS - ADULT Constitutional: denies: chills, fever Eyes: reports: see HPI Ears, Nose, Mouth & Throat: reports: no symptoms reported Cardiovascular: denies: chest pain Respiratory: reports: see HPI Gastrointestinal: reports: no symptoms reported Genitourinary: reports: no symptoms reported Musculoskeletal: reports: no symptoms reported Integumentary: denies: rash Neurological: reports: no symptoms reported Psychiatric: reports: see HPI Endocrine: denies: no symptoms reported Hematologic/Lymphatic: reports: no symptoms reported Allergic/Immunologic: reports: no symptoms reported All Other Systems: Reviewed and Negative Past History - Adult - PAST MEDICAL HISTORY-ADULT Review of Records: reports: Old Records Reviewed, Nursing Assessment Review, Medications Reviewed, Social history reviewed & non-contributory. Major Childhood Illnesses: reports: denies history Cardiovascular: reports: HTN Respiratory: reports: denies history Gastrointestinal: reports: denies history Obstetrical/Gynecological: reports: denies history Genitourinary: reports: denies history Musculoskeletal: reports: denies history Neurological: reports: denies history Psychiatric: reports: denies history Endocrine/Immune: reports: denies history Other Conditions: reports: denies history - PRIOR SURGERIES/PROCEDURES Surgical/Procedure History: reports: recent surgery, cholecystectomy, hernia repair, joint replacement - IMMUNIZATION STATUS Childhood Immunizations: See Nurse Assessment Flu Vaccine: See Nurse Assessment - FAMILY HISTORY Family History: HTN Physical Exam-General - PHYSICAL EXAM-ADULT Initial Vital Signs Reviewed: Yes - CONSTITUTIONAL General Appearance: alert, no apparent distress, obese, other (nondiaphoretic) - EYES Eyes: PERRL/EOMI - HEAD, EARS, NOSE, MOUTH & THROAT HENMT: moist mucous membranes, normal ENT inspection, TMs normal, pharynx normal , angioedema - NECK Neck: non-tender, full range of motion, supple - RESPIRATORY Respiratory: no respiratory distress, no accessory muscle use, decreased breath sounds - CARDIOVASCULAR Cardiovascular: regular rate, rhythm - GASTROINTESTINAL (ABDOMEN) Abdominal Exam: non tender, soft, no organomegaly - LYMPHATIC Lymphatic: no adenopathy - MUSCULOSKELETAL Back Exam: normal inspection, no CVA tenderness, no vertebral tenderness Extremity: non-tender Peripheral Pulses: radial (R): 2+, radial (L): 2+ - SKIN Integumentary: normal color, normal turgor, warm/dry, abrasion(s). negative: dependent lividity - NEUROLOGIC Neurologic: grossly normal - PSYCHIATRIC Psych/Mental Status: anxious Progress - PLAN OF CARE/RESULTS Progress/Plan/Lab Results: Vital Signs - 8 hr 09/20/18 11:17 Temperature 98 F Pulse Rate 60 Respiratory Rate 18 Blood Pressure 161/96 O2 Sat by Pulse Oximetry 98 Orders Category Date Time Status BMP [BASIC METABOLIC PANEL] [CHEM] Stat Lab 09/20/18 11:50 Ordered CBC WITH ELECTRONIC DIFF [HEME] Stat Lab 09/20/18 11:50 Ordered TROPONIN T Stat Lab 09/20/18 11:51 Ordered Result Diagrams: 09/20/18 12:10 09/20/18 12:10 - EKG 1 Time of EKG reading by physician:: 12:25 EKG Read and Signed by:: Hay Buckley Rate: 47 Rhythm: sinus barry QRS: LVH Comments: NSSTW changes - CONSULTS/PCP/HOSPITALIST Notification #1 *Consult/PCP/Hospitalist*: Dr. Turner, hospitalist Time Discussed: 14:00 Consult Disposition: Admit Departure - Departure Date of Disposition Decision: 09/20/18 Time of Disposition Decision: 13:39 DIAGNOSIS: Uncontrolled hypertension, Hypomagnesemia, Dizziness, Bradycardia Disposition: ADMITTED INPATIENT 09 Certified Medical Emergency: Emergent Condition: Stable - Critical Care Note This patient required my direct & personal management of CC.: No Attestation - Physician/ NATALIE Attestation Patient care was provided by Advanced Practice Provider:: No The physician spent face to face time with patient:: Yes Advanced Practice Provider documentation review:: Supervising physician onsite and consulted in the evaluation and care of this patient. The physician did have a face to face encounter with the patient.
[2018-09-20 12:22] LABS: BASO# 0.03 X1000 (0.0-0.2); BASO% 0.5 % (0.0-0.8); EOS# 0.17 X1000 (0.0-0.7); HEMOGLOBIN 12.3 g/dL (14.0-18.0); IMM GRAN# 0.01 X1000 (0.0-0.04); IMM GRAN% 0.2 % (0.0-0.5); LYMPH# 1.53 X1000 (1.2-3.4); MCH 28.4 PG (27-31); MCHC 33.2 g/dL (33-37); MCV 85.5 FL (81-99); MONO# 0.52 X1000 (0.11-0.59); MONO% 9.2 % (1.7-9.3); MPV 11.3 FL (7.4-10.4); NEUT% 60.1 % (42.2-75.2); PLT 122 X1000 (130-400); RBC 4.33 XMIL (4.7-6.1); WBC 5.66 X1000 (4.8-10.8)
--- NOTE | 2018-09-20 12:30 | EKG Report ---
Test Performed on : 09/20/2018 12:24:57 PM Test Reason : pain Blood Pressure : / mmHG Vent. Rate : 047 BPM Atrial Rate : 047 BPM P-R Int : 180 ms QRS Dur : 100 ms QT Int : 426 ms P-R-T Axes : 028 -23 217 degrees QTc Int : 377 ms Sinus bradycardia. Voltage criteria for left ventricular hypertrophy ST & T wave abnormality, consider inferolateral ischemia Abnormal ECG When compared with ECG of 29-AUG-2018 16:07, (Unconfirmed) Vent. rate has decreased BY 26 BPM T wave inversion now evident in Inferior leads QT has shortened Unconfirmed Result
[2018-09-20] MEDS ORDERED: CATAPRES PO ONE (12:38)
[2018-09-20 12:45] LABS: CALCIUM 8.4 mg/dL (8.8-10.2); CREATININE 1.7 mg/dL (0.7-1.2); POTASSIUM 4.5 mmol/L (3.5-5.1)
[2018-09-20] MEDS ORDERED: MAGNESIUM SULFATE 2 GM/S.W.I. 2 GM/50 ML IVPB IV ONE ×2 (13:26→20:22)
[2018-09-20] MEDS ORDERED: NON-FORMULARY MED (Cyanocobalamin (Vitamin B-12) [Vitamin B-12] 1,000 MCG) PO SCH (18:45)
--- NOTE | 2018-09-20 19:56 | HISTORY AND PHYSICAL ---
CHIEF COMPLAINT: "My blood pressure was high and I was dizzy." HISTORY OF PRESENT ILLNESS: This is a 58-year-old gentleman with a history of hypertension who presented to the emergency room after calling his primary care provider and telling her that his blood pressure was elevated. He states that he has been having episodes of dizziness for the past 6 to 8 weeks for which he has been taking very frequent meclizine. He and the describe the dizzy episodes as him becoming lightheaded, feeling like he needed to sit down. He gets warm all over, sweats and sometimes he twitches. He has not been incontinent of stool or urine and once episodes are completed he is alert. He does have a history of low magnesium and he was hospitalized in August. He presented with a magnesium of 0.3. On discharge it was 1.3. He does take a magnesium supplement and states that he does not miss these pills. He denied any syncope, chest pain, any palpitations, any shortness of breath. PAST MEDICAL HISTORY: Hypertension, dizziness. PAST SURGICAL HISTORY: Cholecystectomy, hernia repair, total knee replacement and prostate surgery. SOCIAL HISTORY: He does not smoke. He does not use illicit drugs. He does have occasional alcohol. REVIEW OF SYSTEMS: Discussed with patient with pertinent positives stated in the HPI. He denied any syncope, any shortness of breath, cough, fever, chills, any night sweats, recent weight loss or weight gain, any chest pain or palpitations, nausea, vomiting, diarrhea, constipation, black or bloody vomitus or stools, hematuria, dysuria, frequency, urgency. LABS: WBC is 5.6 with a hemoglobin 12.3, hematocrit 37 and platelets 122,000. Sodium 143, potassium 4.5, BUN 13, creatinine 1.7, with a glucose of 102. Magnesium is 0.3. EKG revealed sinus barry at a rate of 47. ASSESSMENT AND PLAN: 1. Bradycardia. 2. Hypertension. 3. Hypomagnesemia. 4. Dizziness. 5. Chronic kidney disease. PLAN: Patient has been admitted to the medical/surgical floor and placed on telemetry which we will continue. We will do orthostatic vital signs every 12 hours and with neuro checks every 8 hours and as needed. We will identify his home medications and restart as is appropriate. We will repeat a CBC and a renal profile in the morning. We will get a magnesium tonight at 8 o'clock. We will hold his clonidine and his Coreg at present. Further treatments pending hospital course. Dictated by KERRIE Chowdary for Mc Turner MD This chart was documented by, KERRIE Chowdary and accurately reflects the services performed, treatment plan and medical decisions as attested by the providers signature Mc Turner MD. cc: KERRIE Chowdary MD
--- NOTE | 2018-09-21 01:51 | HISTORY AND PHYSICAL ---
ADDENDUM: Patient seen and examined by myself. Full note dictated and discussed with nurse practitioner. Patient was told to come to the hospital because his blood pressure was elevated. Upon evaluation in the hospital, was noted to have elevated blood pressure as well as extremely low magnesium at 0.3. We will admit to the hospital, replace his magnesium. We will stop his PPI as this certainly can be contributing to his low magnesium. We will follow his blood pressures. Further orders as needed. cc: Mc Turner MD
[2018-09-21 06:07] LABS: HEMATOCRIT 34.7 % (42.0-52.0); HEMOGLOBIN 11.2 g/dL (14.0-18.0); MCH 27.9 PG (27-31); MCHC 32.3 g/dL (33-37); MCV 86.3 FL (81-99); MPV 12.3 FL (7.4-10.4); RBC 4.02 XMIL (4.7-6.1); RDW 14.1 % (11.5-14.5); WBC 5.91 X1000 (4.8-10.8)
[2018-09-21 06:40] LABS: ALBUMIN 3.3 g/dL (3.5-5.0); CALCIUM 8.4 mg/dL (8.8-10.2); CREATININE 1.7 mg/dL (0.7-1.2); PHOSPHORUS 3.6 mg/dL (2.7-4.5); TOTAL PROTEIN 6.2 g/dL (6.3-8.3)
[2018-09-21 06:43] LABS: MAGNESIUM 0.8 mg/dL (1.5-2.7)
[2018-09-21] MEDS ORDERED: MAGNESIUM SULFATE 2 GM/S.W.I. 2 GM/50 ML IVPB IV ONE (07:08)
[2018-09-21] MEDS: COZAAR PO SCH (08:29)
[2018-09-21] MEDS: VITAMIN B-12 PO SCH (08:30)
[2018-09-21] MEDS: KLOR-CON PO SCH (08:31)
[2018-09-21] MEDS: VITAMIN D PO SCH (08:32)
[2018-09-21] MEDS: NORVASC PO SCH (08:32)
[2018-09-21] MEDS ORDERED: SLOW-MAG PO SCH (09:00)
--- NOTE | 2018-09-22 03:34 | PROGRESS NOTE ---
DATE: 09/21/2018 SUBJECTIVE: Patient notes that overall he is feeling okay. Denies any chest pain, palpitations. Denies any focalized weakness. PHYSICAL EXAMINATION: Vital Signs: Temperature 98 degrees, pulse 58, respiratory 16, BP 160/81. General: Patient is awake, alert. Currently in no distress, sitting on the side of the bed eating breakfast. HEENT: Normocephalic. Neck: Supple. Cardiovascular: Regular rate. Chest: Clear. Abdomen: Soft. Extremities: Moves all extremities. ASSESSMENT: 1. Bradycardia, stable. 2. Hypertension, stable. 3. Hypomagnesemia. Magnesium level still very low. Has actually increased to 0.8. 4. Dizziness, improved. 5. Chronic kidney disease. PLAN: We will continue patient in the hospital. Continue to replace magnesium. We will recheck labs in the a.m. Give another dose of IV this afternoon. cc: Mc Turner MD
[2018-09-22 06:21] LABS: ALBUMIN 3.5 g/dL (3.5-5.0); CALCIUM 8.9 mg/dL (8.8-10.2); CREATININE 1.4 mg/dL (0.7-1.2); MAGNESIUM 1.1 mg/dL (1.5-2.7); PHOSPHORUS 3.6 mg/dL (2.7-4.5); POTASSIUM 3.9 mmol/L (3.5-5.1); TOTAL BILIRUBIN 0.7 mg/dL (0.20-1.00); TOTAL PROTEIN 6.5 g/dL (6.3-8.3)
[2018-09-22] MEDS ORDERED: MAGNESIUM SULFATE 2 GM/S.W.I. 2 GM/50 ML IVPB IV ONE (08:12)
[2018-09-22 08:14] VITALS: BP 149/58
[2018-09-22] MEDS ORDERED: MAG-OX PO SCH (09:00)
[2018-09-22] MEDS: VITAMIN B-12 PO SCH (09:13)
[2018-09-22] MEDS: COZAAR PO SCH (09:14)
[2018-09-22] MEDS: NORVASC PO SCH (09:14)
[2018-09-22] MEDS: VITAMIN D PO SCH (09:14)
[2018-09-22] MEDS: KLOR-CON PO SCH (09:14)
--- NOTE | 2018-09-22 09:26 | EKG Report ---
Test Performed on : 09/22/2018 09:21:33 AM Test Reason : VERIFY RHYTHM Blood Pressure : / mmHG Vent. Rate : 049 BPM Atrial Rate : 049 BPM P-R Int : 188 ms QRS Dur : 106 ms QT Int : 424 ms P-R-T Axes : 041 -22 202 degrees QTc Int : 383 ms Sinus bradycardia. Left ventricular hypertrophy with repolarization abnormality Cannot rule out Septal infarct , age undetermined Abnormal ECG When compared with ECG of 20-SEP-2018 12:24, (Unconfirmed) ST elevation now present in Anterior leads Unconfirmed Result
--- NOTE | 2018-09-23 03:51 | DISCHARGE SUMMARY ---
ADMISSION DATE: 09/20/2018 DISCHARGE DATE: 09/22/2018 ADDENDUM: Patient seen and examined by myself. Full note dictated and discussed with nurse practitioner. The patient presented to the hospital, treated in usual fashion with hypomagnesemia. Magnesium levels were replaced. His PPI was stopped as this certainly could be the cause of his hypomagnesemia. Discussed with him that he should not take a PPI currently. If he needs something for reflux would suggest Pepcid. The patient will follow up outpatient with his primary care. cc: Mc Turner MD
--- NOTE | 2018-09-23 12:44 | DISCHARGE SUMMARY ---
ADMISSION DATE: 09/20/2018 DISCHARGE DATE: 09/22/2018 DIAGNOSES: 1. Bradycardia, resolved. 2. Hypertension. 3. Hypomagnesemia, resolved. 4. Dizziness, resolved. 5. Chronic kidney disease. HOSPITAL COURSE: Mr. Brice presented to the emergency room with high blood pressure and feeling dizzy. He was found to have a magnesium level of 0.3 with elevated blood pressures in 150s to 160s over 100s. Magnesium was repleted. We continued his home medications and blood pressures have been in the 140s to 160s over 70s. He did have some episodes of bradycardia. He was asymptomatic during these times. In reviewing his previous charts, his heart rate stays in the 50s to 60s predominantly. Magnesium was 0.3 on admission. It was repleted. On discharge it was 1.1. He is having no further dizziness and is ready to be discharged. DISCHARGE PHYSICAL EXAMINATION: Discharge vital signs: Blood pressure is 174/86 with a heart rate of 62, respirations are 20, temperature is 98.1 degrees with room air saturations 99-100%. Cardiovascular: Regular rate and rhythm. S1, S2 appreciated. Pulmonary: Breath sounds are clear. No increased work of breathing noted. Gastrointestinal: Abdomen is soft, nontender, nondistended. Bowel sounds in all 4 quadrants. Neurologic: He is alert and oriented x3. DISCHARGE MEDICATIONS: Norvasc 5 mg p.o. daily, vitamin C 500 mg p.o. daily, carvedilol 25 mg p.o. b.i.d., vitamin D3 1 daily, clonidine as directed, vitamin B12 1500 mcg daily, Cozaar 100 mg daily, magnesium oxide 400 mg p.o. t.i.d., meclizine 12.5 mg as directed, Klor-Con 20 mEq daily. FOLLOW-UP: He needs to follow up with his primary care provider, Lucia Bourgeois. He needs to call Monday to schedule an appointment. He has been instructed to call to be seen sooner or return to the ER for recurring elevated blood sugars, any dizziness, any syncope, any palpitations, chest pain, shortness of breath, cough, temperature greater than 101, or for any questions or concerns that he may have. He is being discharged home in stable condition with family members. TIME SPENT: This is a greater than 30-minute discharge. Dictated by KERRIE Chowdary for Mc Turner MD This chart was documented by, KERRIE Chowdary and accurately reflects the services performed, treatment plan and medical decisions as attested by the providers signature Mc Turner MD. cc: KERRIE Chowdary MD
== END 2018-09-22 10:45 | disposition home or self-care (01) | DRG 641 ==
LOC: P.ED 11:04 → P.MEDSURG 11:04 → OBSVTOIN 15:18 → SUATTDRO 15:18 → P.MEDSURG 15:50
PROVIDERS: ADMIT Family Medicine; ATTEND Family Medicine
CPT/HCPCS: 80048; 80053; 80069; 80307; 80320; 82055; 83735; 84100; 84484; 85025; 85027; 93005; 94760; 94761; 96365; 99285; A9270; G0480; G6040; J3475